=== PATIENT | male | born 1965 | race Caucasian/White ===

== ENCOUNTER 2022-02-17 22:01 | Observation (INO) ==
[2022-02-17] MEDS ORDERED: 0.9 % Sodium Chloride 1,000 ML IVC ONE (22:20)
[2022-02-17 22:37] LABS: Basophils # 0.1 K/mcL (0.0-0.2); Basophils % 1.3 %; Eosinophils # 0.3 K/mcL (0.0-0.6); Eosinophils % 3.4 %; Hematocrit 41.7 % (37.5-50.1); Hemoglobin 14.3 g/dL (12.9-16.9); Immature Granulocytes % 0.4 % (0-4); Lymphocytes # 2.9 K/mcL (0.6-4.6); Lymphocytes % 38.2 %; Mean Corpuscular HGB Conc 34.3 g/dL (31.6-35.5); Mean Corpuscular Hemoglobin 32.6 pg (28.0-33.3); Mean Platelet Volume 10.1 fL (9.4-12.4); Monocytes # 0.8 K/mcL (0.0-1.3); Monocytes % 9.9 %; Neutrophils # 3.6 K/mcL (1.6-8.9); Platelet Count 289 K/mcL (140-400); Red Blood Count 4.39 M/mcL (4.19-5.50); Red Cell Distribution Width 12.6 % (11.5-14.5); Segmented Neutrophils % 46.8 %; White Blood Count 7.7 K/mcL (4.3-11.1)
[2022-02-17 22:44] LABS: INR 1.1; Prothrombin Time 11.9 Seconds (9.4-12.1)
[2022-02-17 22:47] LABS: Activated Partial Thrombo Time 27.5 Seconds (26.0-36.0)
[2022-02-17 23:00] LABS: Alanine Aminotransferase 18 Units/L (7-52); Albumin/Globulin Ratio 1.7 (1.1-2.2); Alkaline Phosphatase 48 Units/L (34-104); Aspartate Amino Transferase 15 Units/L (13-39); BUN/Creatinine Ratio 14 (6-26); Bilirubin,Total 0.4 mg/dL (0.3-1.0); Blood Urea Nitrogen 16 mg/dL (6-20); Calcium 8.7 mg/dL (8.6-10.3); Carbon Dioxide 22 mEq/L (23-29); Chloride 103 mEq/L (98-107); Globulin 2.4 g/dL (2.4-3.5); Glucose 179 mg/dL (70-105); Magnesium 1.8 mg/dL (1.6-2.6); Osmolality,Calculated 288 (280-300); Potassium 3.9 mEq/L (3.5-5.1); Sodium 136 mEq/L (136-145); Total Protein 6.4 g/dL (6.4-8.9); Troponin I < 0.03 ng/mL (< 0.04); eGFR For African Americans > 60 (> 60); eGFR For Non-African Americans > 60 (> 60)
[2022-02-18] MEDS ORDERED: 0.9 % Sodium Chloride 1,000 ML IVC ONE (00:05)
[2022-02-18 01:33] LABS: Amphetamine Screen,Urine Negative ng/mL (Cutoff=1000); Barbiturate Screen,Urine Negative ng/mL (Cutoff=200); Benzodiazepines Screen,Urine Negative ng/mL (Cutoff=200); Cannabinoid Screen,Urine Positive ng/mL (Cutoff = 50); Cocaine Screen,Urine Negative ng/mL (Cutoff= 300); Opiate Screen,Urine Negative ng/mL (Cutoff=300); Phencyclidine Screen,Urine Negative ng/mL (Cutoff=25)
[2022-02-18] MEDS ORDERED: Naloxone 0.4 MG/ML INJ IVP PRN (02:23)
[2022-02-18] MEDS ORDERED: Ondansetron ODT 4 MG TAB.RAPDIS SL PRN (02:23)
[2022-02-18] MEDS ORDERED: Melatonin 3 MG TABLET PO PRN (02:23)
[2022-02-18] MEDS ORDERED: Acetaminophen 325 MG TABLET PO PRN (02:23)
[2022-02-18] MEDS ORDERED: *HR* HYDROcodone/Acet 5/325 mg TABLET PO PRN (02:23)
[2022-02-18] MEDS ORDERED: *HR* OxyCODONE Immed Rel 5 MG TABLET PO PRN (02:23)
[2022-02-18] MEDS ORDERED: Perflutren Lipid Microsphere 1.3 ML in 0.9 % Sodium Chloride 8.7 ML IVP PRN (02:26)
[2022-02-18] MEDS ORDERED: 0.9 % Sodium Chloride 1,000 ML IVC SCH (02:30)
[2022-02-18] MEDS ORDERED: *HR* LORazepam 2 MG/ML VIAL IVP PRN ×3 (02:40→12:54)
[2022-02-18 04:56] LABS: Hematocrit 41.3 % (37.5-50.1); Hemoglobin 14.1 g/dL (12.9-16.9); Mean Corpuscular HGB Conc 34.1 g/dL (31.6-35.5); Mean Corpuscular Hemoglobin 32.7 pg (28.0-33.3); Mean Corpuscular Volume 95.8 fL (83.0-100.0); Mean Platelet Volume 10.3 fL (9.4-12.4); Platelet Count 289 K/mcL (140-400); Red Blood Count 4.31 M/mcL (4.19-5.50); Red Cell Distribution Width 12.8 % (11.5-14.5); White Blood Count 8.5 K/mcL (4.3-11.1)
[2022-02-18 05:15] LABS: Amylase 28 Units/L (29-103); Lipase 11 Units/L (11-82)
[2022-02-18 05:16] LABS: BUN/Creatinine Ratio 13 (6-26); Blood Urea Nitrogen 13 mg/dL (6-20); Calcium 8.6 mg/dL (8.6-10.3); Carbon Dioxide 24 mEq/L (23-29); Chloride 105 mEq/L (98-107); Chol/HDL Ratio 5.1 (0-4.9); Cholesterol 167 mg/dL (< 200); Glucose 106 mg/dL (70-105); HDL Cholesterol 33 mg/dL (40-59); LDL Cholesterol,Calculated 91 mg/dL (< 100); Magnesium 1.7 mg/dL (1.6-2.6); Osmolality,Calculated 285 (280-300); Phosphorous 3.1 mg/dL (2.7-4.5); Potassium 3.9 mEq/L (3.5-5.1); Sodium 137 mEq/L (136-145); Triglycerides 217 mg/dL (< 150); eGFR For African Americans > 60 (> 60); eGFR For Non-African Americans > 60 (> 60)
[2022-02-18 05:41] LABS: Folate 9.3 ng/mL (3.0-16.0)
[2022-02-18 06:30] LABS: Estimated Average Glucose 140 mg/dl; Hemoglobin A1C 6.5 %
[2022-02-18] MEDS: Thiamine (B-1) 100 MG TABLET PO SCH (08:00)
[2022-02-18] MEDS: Folic Acid 1 MG TABLET PO SCH (08:00)
[2022-02-18] MEDS: Vitamin B Complex/Vit C/Vit E 1 EACH TABLET PO SCH (08:00)
[2022-02-18] MEDS ORDERED: Isovue-370 500 ML BOTTLE IVP ONE (08:49)
[2022-02-18] MEDS: levETIRAcetam 500 MG/5 ML UDC PO SCH ×2 (13:24→19:45)
[2022-02-19] MEDS ORDERED: Regadenoson 0.4 MG/5 ML SYRINGE IVP ONE (05:45)
[2022-02-19] MEDS ORDERED: *HR* Enoxaparin 40 MG/0.4 ML SYRINGE SQ SCH (06:00)
[2022-02-19] MEDS: Folic Acid 1 MG TABLET PO SCH (08:58)
[2022-02-19] MEDS: levETIRAcetam 500 MG/5 ML UDC PO SCH (08:58)
[2022-02-19] MEDS: Vitamin B Complex/Vit C/Vit E 1 EACH TABLET PO SCH (08:58)
[2022-02-19] MEDS: Thiamine (B-1) 100 MG TABLET PO SCH (08:58)
[2022-02-19 10:46] VITALS: BP 132/74; PULSE 53; TEMP 97.7; O2SAT 94
== END 2022-02-19 14:09 | disposition home or self-care (01) ==
LOC: EMEROOARM 22:01 → 3BNU 22:01 → SUATTDRO 02-18 02:08 → 3BNU 02-18 02:41
PROVIDERS: ADMIT Family Medicine; ATTEND Registered Nurse